=== PATIENT | female | born 1955 | race Caucasian/White ===

== ENCOUNTER 2018-01-10 08:01 | Inpatient (IN) | payer OTHER ==
[~2018-01-10] VITALS: Ht 142.2 cm; Wt 88.9 kg
[~2018-01-10 08:01] MED LIST: ALBU05 IH; ATROVUD IH; FLUT1DIS3 IH; LEVO500T2 PO; MONT10TA21 PO; P20 PO
[2018-01-10] MEDS ORDERED: ALBUTEROL (0.083%) 2.5MG/3ML NEB HHN STA ×3 (08:27→12:59)
[2018-01-10] MEDS ORDERED: IPRATROPIUM BROMIDE (0.02%) 0.5MG/2.5ML NEB HHN STA ×3 (08:27→12:59)
[2018-01-10] MEDS ORDERED: PREDNISONE 20MG TABLET PO STA (08:27)
[2018-01-10] MEDS ORDERED: AZITHROMYCIN 500 MG TABLET PO ONE ×2 (08:30→09:00)
[2018-01-10] MEDS ORDERED: DOXYCYCLINE HYCLATE 100MG CAPSULE PO ONE (09:45)
[2018-01-10] MEDS ORDERED: ACETAMINOPHEN 325MG TABLET PO ONE (10:45)
[2018-01-10] MEDS ORDERED: MAGNESIUM 2 G PREMIX 50 ML IV ONE (11:00)
[2018-01-10] MEDS ORDERED: SODIUM CHLORIDE 0.9% 1,000 ML IV ONE (12:12)
[2018-01-10 12:27] LABS: BASOPHILS % 0.6 % (0.0-2.0); EOSINOPHILS % 0.2 % (0.0-5.0); HEMATOCRIT. 38.6 % (36.0-48.0); HEMOGLOBIN. 13.1 g/dL (12.0-16.0); LYMPHOCYTES % 8.5 % (20.0-50.0); MEAN CORPUSCULAR HEMOGLOBIN 27.2 pg (28.0-32.0); MEAN CORPUSCULAR VOLUME 80.3 fL (81.0-99.0); MEAN PLATELET VOLUME 6.9 fl (7.4-10.4); MONOCYTES % 1.9 % (2.0-8.0); NEUTROPHILS % 88.8 % (40.0-76.0); PLATELET 297 x1000/uL (130-400); RED CELL DISTRIBUTION WIDTH 13.8 % (11.6-14.6)
[2018-01-10 12:37] LABS: CHLORIDE 102 mEq/L (98-107)
[2018-01-10 12:47] LABS: INR 1.1; PROTHROMBIN TIME 10.9 sec (9.4-11.6)
[2018-01-10] MEDS ORDERED: GUAIFENESIN 200MG/10ML SUGAR FREE UDC PO PRN (18:15)
[2018-01-10] MEDS ORDERED: CLONIDINE 0.1MG TABLET PO PRN (18:15)
[2018-01-10] MEDS ORDERED: ZOLPIDEM TARTRATE 5MG TABLET PO PRN (18:15)
[2018-01-10] MEDS ORDERED: MAGNESIUM/ALUMINUM HYDROXIDE/SIMETHICONE 30ML UDC PO PRN (18:15)
[2018-01-10] MEDS ORDERED: NITROGLYCERIN 0.4MG TABLET SL SL PRN (18:15)
[2018-01-10] MEDS ORDERED: IPRATROPIUM/ALBUTEROL 0.5-3(2.5)MG/3ML NEB INH PRN (18:15)
[2018-01-10] MEDS ORDERED: ONDANSETRON HCL 4MG/2ML VIAL IV PRN (18:15)
[2018-01-10] MEDS ORDERED: DOCUSATE SODIUM 100MG CAPSULE PO PRN (18:15)
[2018-01-10] MEDS ORDERED: LORAZEPAM 0.5MG TABLET PO PRN (18:15)
[2018-01-10] MEDS ORDERED: NA PHOS,M-B/NA PHOS,DI-BA ENEMA 118ML PR PRN (20:00)
[2018-01-10] MEDS: IPRATROPIUM/ALBUTEROL 0.5-3(2.5)MG/3ML NEB HHN SCH ×2 (20:08→22:44)
[2018-01-10 20:36] VITALS: BP 151/73
[2018-01-10] MEDS: GUAIFENESIN 600MG ER TABLET PO SCH (21:28)
[2018-01-10] MEDS: DILTIAZEM HCL 60MG TABLET PO SCH ×2 (21:29→23:29)
[2018-01-10] MEDS: ENOXAPARIN 40MG/0.4ML SYR SUBCUT SCH (21:31)
[2018-01-10] MEDS: LEVOFLOXACIN 500MG PREMIX 100 ML IV SCH (21:43)
[2018-01-10 21:44] VITALS: BP 151/72
[2018-01-10] MEDS: METHYLPREDNISOLONE SOD SUCC 125 MG/2 ML VIAL IV SCH (22:40)
[2018-01-10] MEDS: ACETAMINOPHEN 325MG TABLET PO PRN (23:37)
[2018-01-11] VITALS (7 sets, daily range): BP systolic 115–160; BP diastolic 55–75
[2018-01-11] MEDS: IPRATROPIUM/ALBUTEROL 0.5-3(2.5)MG/3ML NEB HHN SCH ×6 (00:19→20:01)
[2018-01-11 01:44] LABS: *AMPHETAMINES SCREEN URINE NEGATIVE (NEGATIVE); *BARBITURATES SCREEN URINE NEGATIVE (NEGATIVE); *BENZODIAZEPINES SCREEN URINE NEGATIVE (NEGATIVE); *COCAINE SCREEN URINE NEGATIVE (NEGATIVE); CANNABINOID URINE SCREEN NEGATIVE (NEGATIVE); METHADONE URINE SCREEN NEGATIVE (NEGATIVE); OPIATES URINE SCREEN NEGATIVE (NEGATIVE); PHENCYCLIDINE URINE SCREEN NEGATIVE (NEGATIVE)
[2018-01-11] MEDS: METHYLPREDNISOLONE SOD SUCC 125 MG/2 ML VIAL IV SCH ×3 (05:21→21:59)
[2018-01-11] MEDS: DILTIAZEM HCL 60MG TABLET PO SCH ×3 (05:24→18:20)
[2018-01-11] MEDS: GUAIFENESIN 600MG ER TABLET PO SCH ×2 (08:04→22:23)
[2018-01-11] MEDS: ACETAMINOPHEN 325MG TABLET PO PRN (13:53)
[2018-01-11] MEDS ORDERED: LOSARTAN POTASSIUM 50 MG TABLET PO SCH (15:00)
[2018-01-11 15:38] LABS: BG BASE EXCESS -1.8 mmol/L (-2.0-2.0); BG CARBOXYHEMOGLOBIN 0.2 % (0.5-1.5); BG DEOXYHEMOGLOBIN 6.1 % (0.0-5.0); BG FRACTION INSPIRED OXYGEN 21; BG HCO3 ACT 21.6 mmol/L (22.0-26.0); BG METHEMOGLOBIN 0.3 % (0.0-1.5); BG OXYGEN SATURATION 93.9 % (92.0-98.5); BG OXYHEMOGLOBIN 93.4 % (94.0-97.0); BG PCO2 32.9 mmHg (35.0-45.0); BG PH 7.435 (7.350-7.450); BG PO2 68.9 mmHg (75.0-100.0); BG SAMPLE SITE LEFT BRACHIAL; BG TOTAL HEMOGLOBIN 13.7 g/dL (12.0-18.0); BG VENT MODE ROOM AIR
[2018-01-11] MEDS: LEVOFLOXACIN 500MG PREMIX 100 ML IV SCH (22:00)
[2018-01-11] MEDS: ENOXAPARIN 40MG/0.4ML SYR SUBCUT SCH (22:03)
[2018-01-12] VITALS: BP 125/74
[2018-01-12] MEDS: DILTIAZEM HCL 60MG TABLET PO SCH (00:15)
== END 2018-01-12 00:25 | disposition short-term general hospital (02) | DRG 189 ==
LOC: ER 08:17 → 5WST 13:22 → ENRESERV 16:19 → 6EST 22:20
PROVIDERS: ADMIT Internal Medicine; ATTEND Internal Medicine
DX: J96.00 Acute respiratory failure, unspecified whether with hypoxia or hypercapnia (principal); J45.901 Unspecified asthma with (acute) exacerbation; I10 Essential (primary) hypertension; Z90.710 Acquired absence of both cervix and uterus; Z98.891 History of uterine scar from previous surgery; Z79.899 Other long term (current) drug therapy; Z88.6 Allergy status to analgesic agent
CPT/HCPCS: 36415; 36600; 71045; 80048; 80305; 82375; 82805; 83036; 85025; 85610; 93005; 93970; 94640; 96365; 99285; J1650; J1956; J2930; J3475; J7030; J7050; J7512; J7611; J7620